=== PATIENT | female | born 1980 | race Two or more races ===

== ENCOUNTER → 2016-12-27 | Outpatient (CLI) | payer BC, OTHER ==
[2016-12-27 13:09] LABS: BASOPHILS % (AUTO) 0.3 % (0.0-2.0); EOSINOPHILS # (AUTO) 0.1 K/uL (0.0-0.7); HEMATOCRIT 37.8 % (37.0-47.0); HEMOGLOBIN 12.4 g/dL (12.0-16.0); LYMPHOCYTES # (AUTO) 2.2 K/uL (0.8-4.8); LYMPHOCYTES % (AUTO) 23.8 % (20.5-51.5); MEAN CORPUSCULAR HGB CONC 33 g/dL (32.0-37.0); MEAN CORPUSCULAR VOLUME 82.2 fL (81.0-99.0); MONOCYTES # (AUTO) 0.5 K/uL (0.1-1.30); MONOCYTES % (AUTO) 5.5 % (0.0-11.0); NEUTROPHILS # (AUTO) 6.6 K/uL (1.8-8.9); NEUTROPHILS % (AUTO) 69.4 % (38.5-71.5); PLATELET COUNT (AUTO) 282 K/uL (150-450); RED BLOOD CELL COUNT(AUTO) 4.59 MIL/uL (4.20-5.40); WHITE BLOOD COUNT (AUTO) 9.4 K/uL (4.0-11.2)
[2016-12-27 13:19] LABS: *BILIRUBIN,URIN NEGATIVE (NEGATIVE); *BLOOD, URINE NEGATIVE (NEGATIVE); *CLARITY,URINE CLEAR (CLEAR); *COLOR,URINE YELLOW (YELLOW); *KETONES,URINE NEGATIVE (NEGATIVE); *PROTEIN,URINE NEGATIVE (NEGATIVE); *UROBILINOGEN,URINE 0.2 E.U./dl (NORMAL); LEUKOCYTE ESTERASE ,URINE NEGATIVE (NEGATIVE); NITRITE, URINE NEGATIVE (NEGATIVE); UGLUCOSE NEGATIVE (NEGATIVE)
[2016-12-27 13:55] LABS: BACTERIA,URINE FEW /HPF (NONE SEEN); MUCUS,URINE FEW /LPF (0-FEW); RBC,URINE NONE SEEN /HPF (0-3); SQUAMOUS EPITHELIAL CELL,UR FEW /HPF (NONE SEEN); URINE AMORPHOUS PHOSPHATES FEW /HPF; WBC,URINE NONE SEEN /HPF (0-3)
[2016-12-27 14:00] LABS: THYROID STIMULATING HORMONE 3.59 mIU/mL (0.358-3.740)
== END | disposition home or self-care (01) ==
LOC: LAB 11:55
DX: R53.1 Weakness (principal)
CPT/HCPCS: 36415; 84443; 85025

== ENCOUNTER 2017-01-14 06:25 | Day surgery (SDC) | payer BC, OTHER ==
[2017-01-14] MEDS ORDERED: CEFAZOLIN 50 ML IV ONE (06:41)
[2017-01-14 07:05] LABS: *URINE HCG, QUAL POSITIVE (NEGATIVE)
[2017-01-14] MEDS ORDERED: MIDAZOLAM HCL 2 MG/2 ML VIAL ONE (07:39)
[2017-01-14] MEDS ORDERED: OXYTOCIN 10 UNIT/ML VIAL ONE (08:09)
[2017-01-14] MEDS ORDERED: PROPOFOL 200 MG/20 ML BOTTLE IV ONE (10:59)
[2017-01-14] MEDS ORDERED: SEVOFLURANE 250 ML BOTTLE IH ONE (10:59)
[2017-01-14] MEDS ORDERED: DEXAMETHASONE SOD PHOSPHATE 4 MG INJ IV ONE (11:00)
[2017-01-14] MEDS ORDERED: ONDANSETRON 4 MG/2 ML VIAL IV ONE (11:00)
[2017-01-14] MEDS ORDERED: LIDOCAINE HCL 1% 20 ML VIAL MC ONE (11:01)
[2017-01-14] MEDS ORDERED: IV LACTATED RINGERS SOLUTION 1,000 ML BAG IV ONE (11:01)
== END 2017-01-14 10:30 | disposition home or self-care (01) ==
LOC: DS 06:25
PROVIDERS: ATTEND Obstetrics & Gynecology
DX: O02.1 Missed abortion (principal)
CPT/HCPCS: 36415; 59820; 84703; 85730; 86900; 86901; A4663; J0690; J1100; J2250; J2405; J2590; J3490 ×2; J7120 ×2